=== PATIENT | male | born 2000 ===

== ENCOUNTER 2020-07-22 21:13 | Observation (INO) | payer OTHER, SELFPAY ==
[2020-07-22] MEDS ORDERED: Morphine 2 MG/ML VIAL SLOW IVP PRN (23:16)
[2020-07-22] MEDS ORDERED: Ondansetron PF 4 MG/2 ML Vial IVP PRN (23:17)
[2020-07-22 23:41] VITALS: BMI 31.8
[2020-07-23] MEDS: D5 1/2 NS w/20 mEq KCL 1,000 ML IV SCH ×2 (00:19→10:17)
[2020-07-23] MEDS: Piperacillin/Tazobactam 3.375 GM in Sodium Chloride 0.9% 100 ML IVPB SCH ×2 (00:19→05:22)
[2020-07-23] MEDS ORDERED: Fentanyl 100 MCG/2 ML VIAL ONE ×2 (09:18→10:49)
[2020-07-23] MEDS ORDERED: Bupivacaine 0.25% HCL 30 ML VIAL ONE (09:28)
[2020-07-23] MEDS ORDERED: XYLOCAINE 2%-EPI 1:100,000 20 ML VIAL ONE (09:28)
[2020-07-23] MEDS ORDERED: Midazolam HCl 2 mg/2 ml Vial ONE (09:39)
[2020-07-23] MEDS ORDERED: Rocuronium Bromide 10 MG/ML (10ML VIAL) ONE (10:01)
[2020-07-23] MEDS ORDERED: Dexamethasone 20 MG/5 ML VIAL ONE (10:01)
[2020-07-23] MEDS ORDERED: Succinylcholine 200 MG/10 ml SYRINGE FS ONE (10:01)
[2020-07-23] MEDS ORDERED: Ketorolac Tromethamine 30 MG/ML VIAL ONE (10:01)
[2020-07-23] MEDS ORDERED: Glycopyrrolate 0.2 MG/ML 5 ML SYRINGE ONE (10:01)
[2020-07-23] MEDS ORDERED: Lidocaine 1% PF 5 ML VIAL ONE (10:01)
[2020-07-23] MEDS ORDERED: PROPOFOL 200 MG/20 ML VIAL ONE (10:01)
[2020-07-23] MEDS ORDERED: Ondansetron PF 4 MG/2 ML Vial ONE (10:01)
[2020-07-23] MEDS ORDERED: Acetaminophen/Codeine 30-300mg Tablet PO PRN (10:44)
[2020-07-23 15:46] VITALS: BP 118/56; TEMP 98.5
== END 2020-07-23 16:00 | disposition home or self-care (01) ==
LOC: SURG A 22:17
PROVIDERS: ADMIT Surgery; ATTEND Surgery
PROC: 0DTJ4ZZ Resection of Appendix, Percutaneous Endoscopic Approach (ICD-10-PCS; principal; 2020-07-23)
DX: K35.80 Unspecified acute appendicitis (principal); F41.9 Anxiety disorder, unspecified
CPT/HCPCS: 88304; 96365; G0378; J1100; J1885; J2250; J2405; J2543; J2704; J3010; J3480; J3490; S0020